=== PATIENT | male | born 1940 ===

== ENCOUNTER 2018-02-14 07:19 | Day surgery (SDC) | payer MEDICARE ==
[~2018-02-14 07:19] MED LIST: ACETAMINOPHEN 1,000 MG/100 ML BTL IV ONE; CEFAZOLIN 2 Gram 2 GM/50 ML BAG IVPB ONE; FAMOTIDINE 20MG TABLET PO ONE; MECLIZINE 25 MG TABLET PO ONE; METOCLOPRAMIDE 10 MG TABLET PO ONE
[2018-02-14] MEDS ORDERED: TRANEXAMIC ACID 1,000 MG/10 ML ML IV ONE (07:20)
[2018-02-14] MEDS ORDERED: LIDOCAINE 2% MDV (20MG/ML) 20ML VIAL IV ONE (07:20)
[2018-02-14] MEDS ORDERED: BUPIVACAINE LIPOSOME 266MG/20ML VIAL IV ONE (07:20)
[2018-02-14] MEDS ORDERED: BUPIVACAINE 0.25% W/EPI MPF 30ML VIAL IVP ONE (07:20)
[2018-02-14] MEDS ORDERED: PROPOFOL 10 MG/ML VIAL IV ONE (07:20)
[2018-02-14] MEDS ORDERED: ROPIVACAINE HCL (NAROPIN) /PF 5MG/ML 20ML VIAL IV ONE (07:20)
[2018-02-14] MEDS ORDERED: EPHEDRINE SULFATE 50 MG/ML ML IV ONE (07:20)
[2018-02-14] MEDS ORDERED: DEXAMETHASONE 4 MG/ML 1ML VIAL IVP ONE (07:20)
[2018-02-14] MEDS ORDERED: MIDAZOLAM HCL 2MG/2ML VIAL IV ONE (07:20)
[2018-02-14] MEDS ORDERED: ONDANSETRON HCL IV 4 MG/2 ML VIAL IVP ONE (07:20)
[2018-02-14] MEDS ORDERED: OXYCODONE HCL 5 MG TABLET PO PRN ×2 (11:51)
[2018-02-14] MEDS ORDERED: TRAMADOL HCL 50 MG TABLET PO PRN ×2 (12:00)
[2018-02-14] MEDS ORDERED: ONDANSETRON HCL IV 4 MG/2 ML VIAL IVP PRN (12:00)
[2018-02-14] MEDS ORDERED: SENNOSIDES/DOCUSATE SODIUM UD CAPSULE PO PRN (12:00)
[2018-02-14] MEDS ORDERED: METOCLOPRAMIDE HCL 10 MG/2 ML VIAL IVP PRN (12:00)
[2018-02-14] MEDS ORDERED: ZOLPIDEM TARTRATE 5 MG TABLET PO PRN (12:00)
[2018-02-14] MEDS ORDERED: AL HYDROX/MAG HYDROX 30ML UD PO PRN (12:00)
[2018-02-14] MEDS ORDERED: DIPHENHYDRAMINE HCL 25 MG CAPSULE PO PRN (12:00)
[2018-02-14] MEDS ORDERED: MAGNESIUM HYDROXIDE 30 ML UDC PO PRN (12:00)
[2018-02-14] MEDS ORDERED: HYDROMORPHONE HCL 2 MG/ML VIAL IV PRN (12:00)
[2018-02-14] MEDS: RINGERS SOLUTION,LACTATED 1,000 ML IV SCH (13:59)
[2018-02-14] MEDS ORDERED: TRANEXAMIC ACID 1,000 MG in 0.9 % SODIUM CHLORIDE 100ML 100 ML IVPB ONE (14:00)
[2018-02-14] MEDS: ACETAMINOPHEN 1,000 MG/100 ML BTL IV SCH ×2 (14:45→19:51)
--- NOTE | 2018-02-14 14:52 | Rehab Evaluation ---
Patient Information - Patient Information Diagnosis: L knee OA Ordered Treatment: PT Evaluate and Treat Status: Initial Evaluation Surgery: Yes (L TKA) Date of Surgery: 02/14/18 Past Medical/Surgical Hx: PAST MEDICAL/SURGICAL HISTORY Past Surgical History RTKA PMH - Respiratory Hx Respiratory Disorders Yes Hx Bronchitis Yes PMH - Cardiovascular Hx Cardiovascular Disorders No Exercise Tolerance Good PMH - Neuro Hx Neurological Disorders No PMH - GI Hx Gastrointestinal Disorders Yes Hx Gastroesophageal Reflux Yes PMH - Hx Genitourinary Disorders Yes Hx Bladder Problem Yes: urgency and frequency PMH - Endocrine Hx Endocrine Disorders No PMH - Musculoskeletal Hx Musculoskeletal Disorders Yes Hx Arthritis Yes: left knee PMH - Psych Hx Psychiatric Problems No PMH - Hematology/Oncology Hx Hematology/Oncology No Disorders Premorbid Status: Detail (The patient was independent with all mobility prior to surgery.) - Time With Patient Total Time Spent With Patient (Min): 30 (L TKA) Treatment Procedures: Detail (Initial Evaluation, gait training) Subjective Information - Subjective Information Per Patient (The patient had no complaints of pain.) Objective Data - Mental Status Patient Orientation: Oriented x3 - Visual Perception Appears within normal limits for therapeutic activities - ROM Not within normal limits (The patient's L knee AROM was limited as to be expected s/p surgery. All other LE AROM is WNL.) - Strength/Tone Not within normal limits (The patient's L LE strength was NT secondary to s/p surgery, however strength is functional ie: the patient was able to complete a SLR. The patient's R LE strength was generally 4+ to 5/5.) - Bed Mobility Independent (The patient was independent with supine to sit transfer.) - Transfers Independent (The patient was indedpendent with sit to and from stand transfer with verbal cues to push up from the surface and not the walker.) - Balance Balance Sitting: Good Balance Standing: Good - Sensation Intact - Gait Detail (The patient ambulated with 2 wheeled walker WBAT on the L LE a distance of 80 feet x 1 with CG of 1 for safety and one to handle IV.) Therapy Assessment - Therapy Assessment Detail (The patient was independent with bed mobility,transfers and required CG of 1 for safety.Feel the patient will progress well with mobility.) Problem List - Problem List Physical Therapy Problem List: Detail (1) Decreased L knee AROM and strength 2) Nonambulatory on stairs) Goals - Goals Physical Therapy Goals: 1) The patient will be independent with HEP. 2) The patient will ambulate on stairs with supervision for safety using correct technique. 3) The patient will ambulate independently with assistive device community distances. Prognosis - Prognosis Good Plan - Plan Physical Therapy Plan: PT 1-2 visits for gait training, and instruction in HEP.
[2018-02-14] MEDS ORDERED: CEFAZOLIN 1 Gram 2 GM/100 ML BAG IVPB SCH (17:00)
[2018-02-14] MEDS ORDERED: CEFAZOLIN 2 Gram 2 GM/50 ML BAG IVPB SCH (17:00)
[2018-02-14] MEDS ORDERED: PNEUM 13-VAL/PF 0.5 ML IM ONE (17:00)
[2018-02-14] MEDS: ASPIRIN 325 MG TAB ENTERIC-COATED PO SCH (22:09)
[2018-02-15] MEDS: CEFAZOLIN 1 Gram 1 GM/50 ML BAG IVPB SCH ×4 (00:18→10:21)
[2018-02-15] MEDS: ACETAMINOPHEN 1,000 MG/100 ML BTL IV SCH (01:41)
[2018-02-15] MEDS: RINGERS SOLUTION,LACTATED 1,000 ML IV SCH ×2 (01:50→04:29)
[2018-02-15] MEDS: ASPIRIN 325 MG TAB ENTERIC-COATED PO SCH (09:40)
--- NOTE | 2018-02-15 09:44 | Physical Therapy Tx Note ---
Physical Therapy Tx Note - Treatment Note Tolerated: Good Total Time Spent With Patient: 20 Physical Therapy Tx Note: Detail (The patient was in bed when PT arrived and denied pain. The patient was independent with supine to and from sit transfer. The patient ambulated 50 feet independently with 2 wheeled walker, WBAT on the L LE. The patient ambulated on 3 steps with one railing and folded walker with supervision for safety and occasional verbal cues for proper technique. The patient's HEP was reviewed including ankle pumps, gluteal squeezes, quadricep and hamstring sets, heel slides supine and seated and SLR. The patient completed 5 reps of each and required occasional verbal cues to complete exercises slowly. All inpatient PT goals have been met. The patient is discharged from inpatient PT.) Physical Therapy Problem List: Detail (1) Decreased L knee AROM and strength 2) Nonambulatory on stairs) Physical Therapy Goals: 1) The patient will be independent with HEP.(Goal met). 2) The patient will ambulate on stairs with supervision for safety using correct technique.(Goal met). 3) The patient will ambulate independently with assistive device community distances. (Goal met) Physical Therapy Plan: The patient has met all inpatient PT goals and is discharged from inpatient PT at this time. The patient is to complete ongoing Pt in another setting.
[2018-02-15] MEDS ORDERED: CELECOXIB 100 MG CAPSULE PO SCH (10:00)
--- NOTE | 2018-02-15 10:50 | Operative Note ---
DATE OF SURGERY: 02/14/2018 Surgeon: Yaya Paredes DO PREOPERATIVE DIAGNOSIS: Primary osteoarthritis of the left knee. POSTOPERATIVE DIAGNOSIS: Primary osteoarthritis of the left knee. OPERATION: Left total knee arthroplasty. DESCRIPTION OF PROCEDURE: This 77-year-old male was taken to the operating room and placed in the supine position on the operating room table where spinal anesthesia was induced. The left lower extremity was then elevated. It was prepped with Hibiclens and draped in the usual sterile fashion. It was exsanguinated and the tourniquet inflated to 300 mmHg. All scrub personnel wore personal isolation suits. An anterior longitudinal midline incision was made followed by a medial parapatellar arthrotomy incision. An intracondylar drill hole was made for the intramedullary alignment venecia, and a 6-degree valgus 10 mm cut was made in the distal femur. The wafer of bone was removed. The femur was sized to a size 65 and the 4-in-1 cutting block was pinned in 3 degrees of external rotation. Appropriate cuts were made. Subsequently, we directed our attention to the proximal tibia and an extramedullary alignment guide was used to cut the proximal tibia referencing a 10 mm cut off the lateral tibial plateau. The cutting block was then pinned in 3 degrees of posterior slope, and the subsequent cut was made. The wafer of bone was removed. The tibia was sized to a 71. Stem punch was used. We then placed trial components and felt that the posterior cruciate ligament was contracted and not functional. Therefore, we elected to proceed with posterior stabilized component. Therefore, the appropriate cuts were made for the posterior stabilized femoral component. We then cut the patella and restored it to anatomic height with a 34 x 7.8 mm patella. It was then taken through range of motion and knee was stable. All trial components were then removed and the wound copiously irrigated with pulse lavage, lactated Ringer's solution. Exparel was injected into the posterior, medial, and lateral corners of the joint and into the periosteum and joint capsule after the insertion of the final components. All bony surfaces were dried and all excess cement was removed after the insertion of each component. Initially the tibial was cemented followed by the femur and the polyethylene implant was subsequently inserted. The patella was cemented and once the cement had hardened, the knee was again taken through range of motion and found to be stable. A drain was placed through a separate stab incision. The arthrotomy incision closed with a #2 Vicryl. The subcutaneous tissue was closed with 0 Vicryl and the skin was stapled. Sterile dressings were applied and Polar Care was applied. The patient was taken to the recovery room in satisfactory condition. GROSS PATHOLOGY: This patient demonstrated advanced medial compartment osteoarthritis. The patient had a slight flexion contracture. The patient did have contracture of his posterior cruciate ligament and subsequently a posterior stabilized component was used. Final components inserted were a [employer] size 65 posterior stabilized femur, a 71 tibial baseplate, a 12 mm posterior stabilized plus, and a 34 x 7.8 mm patella was used. CC: DO LEONARD [place]
[2018-02-15] MEDS ORDERED: HYDROCODONE/APAP 5/325MG TABLET PO PRN ×2 (11:51)
[2018-02-15] MEDS ORDERED: OXYCODONE HCL/APAP 5MG/325MG TABLET PO PRN ×2 (11:51)
[2018-02-15] MEDS ORDERED: ACETAMINOPHEN 325 MG TAB PO PRN (12:00)
--- NOTE | 2018-02-15 15:01 | Rehab Evaluation ---
Patient Information - Patient Information Diagnosis: L knee OA Ordered Treatment: OT Evaluate and Treat Status: Initial Evaluation Surgery: Yes (L TKA) Date of Surgery: 02/14/18 Past Medical/Surgical Hx: PAST MEDICAL/SURGICAL HISTORY Past Surgical History RTKA PMH - Respiratory Hx Respiratory Disorders Yes Hx Bronchitis Yes PMH - Cardiovascular Hx Cardiovascular Disorders No Exercise Tolerance Good PMH - Neuro Hx Neurological Disorders No PMH - GI Hx Gastrointestinal Disorders Yes Hx Gastroesophageal Reflux Yes PMH - Hx Genitourinary Disorders Yes Hx Bladder Problem Yes: urgency and frequency PMH - Endocrine Hx Endocrine Disorders No PMH - Musculoskeletal Hx Musculoskeletal Disorders Yes Hx Arthritis Yes: left knee PMH - Psych Hx Psychiatric Problems No PMH - Hematology/Oncology Hx Hematology/Oncology No Disorders Premorbid Status: Detail (The patient was independent with all mobility prior to surgery.) Social History: Detail (Pt lives with spouse in a 2 story house with basement, he generally stays on the main floor. He has 3 steps with railings at the entrance. He has a tub/shower combination with grab bar and a standard height toilet. His completes all IADL activities. He was Ind with self cares.) Precautions: [place], Fall - Time With Patient Total Time Spent With Patient (Min): 45 Treatment Procedures: Detail (OT eval low complexity) Subjective Information - Subjective Information Per Patient Objective Data - Pain Pain Present: No (Pt reports no significant pain.) - Mental Status Patient Orientation: Oriented x3 - Visual Perception Appears within normal limits for therapeutic activities - ROM Within normal limits (Mark UE AROM WNL) - Strength/Tone Within normal limits (Mark UE strength WNL) - Coordination Appears within normal limits for therapeutic activities - Bed Mobility Independent (Ind with supine to sit.) - Transfers Independent (Ind with sit to stand from EOB, toilet and chair.) - Balance Balance Sitting: Good Balance Standing: Good - Sensation Intact - Gait Detail (Pt ambulating in room with 2 wheeled walker Indly.) - ADL's/IADL's Detail (Pt educated and able to demonstrate Ind with modified LE dressing technique including doffing slipper socks and briefs and donning boxer shorts, jeans, socks and shoes. He purchased a sock aid and was able to demonstrate correct use.) Therapy Assessment - Therapy Assessment Detail (Pt is Ind with LE self care activities using sock aid and modified dressing techniques.) Problem List - Problem List Physical Therapy Problem List: Detail (1) Decreased L knee AROM and strength 2) Nonambulatory on stairs) Occupational Therapy Problem List: Detail (No current OT problems identified.) Goals - Goals Physical Therapy Goals: 1) The patient will be independent with HEP.(Goal met). 2) The patient will ambulate on stairs with supervision for safety using correct technique.(Goal met). 3) The patient will ambulate independently with assistive device community distances. (Goal met) Occupational Therapy Goals: No current OT goals identified. Prognosis - Prognosis Good Plan - Plan Physical Therapy Plan: The patient has met all inpatient PT goals and is discharged from inpatient PT at this time. The patient is to complete ongoing Pt in another setting. Occupational Therapy Plan: No further IP OT recommended at this time. Thank you for this referral.
--- NOTE | 2018-02-16 13:00 | Discharge Summary ---
DATE OF ADMISSION: 02/14/2018 DATE OF DISCHARGE: 02/15/2018 ADMITTING DIAGNOSIS: Osteoarthritis of the left knee. DISCHARGE DIAGNOSIS: Osteoarthritis of the left knee. OPERATIVE PROCEDURE: Elective left total knee arthroplasty. DESCRIPTION: This 77-year-old male was admitted to the hospital for elective total knee arthroplasty and tolerated the operative procedure well. He progressed satisfactorily with physical therapy and was ready for discharge on the first postoperative day, not requiring pain medications at that time. The patient cleared physical therapy. He will be discharged to follow up in the clinic in 2 weeks. He will be weightbearing as tolerated. Routine wound instructions were given. He will have home physical therapy. He will wear his ELLE hose during the day and remove them at night. He was given a prescription for Percocet 5, #40, one every 4 hours as necessary for pain. He will take aspirin 325 mg daily. Should he have any problems prior to being seen, he was instructed to call my office. LEONARD
== END 2018-02-15 14:55 | disposition home or self-care (01) ==
LOC: SUR 07:19 → MEDSURG 13:04 → SUR 02-15 14:55
PROVIDERS: ATTEND Orthopaedic Surgery
DX: M17.12 Unilateral primary osteoarthritis, left knee (principal)
CPT/HCPCS: 27447; 01402; J2405; J0690 ×3; C9290; J3490; J2795; G8978; G8979 ×2; G8980; G8987; G8988; G8989; 97110; J7120